=== PATIENT | male | born 1995 | race Caucasian/White ===

== ENCOUNTER 2018-09-26 22:09 | Observation (INO) | payer BC ==
[2018-09-27] MEDS ORDERED: Dextrose 50% Abboject 50 ML SYRINGE SLOW IVP PRN (01:24)
[2018-09-27] MEDS ORDERED: HYDROcodone/Acetaminophen 10/325 mg Tablet PO PRN (01:24)
[2018-09-27] MEDS ORDERED: Dextrose 5% in Water 1,000 ML IV PRN (01:24)
[2018-09-27] MEDS ORDERED: Ondansetron PF 4 MG/2 ML Vial IVP PRN (01:24)
[2018-09-27] MEDS ORDERED: traMADol HCl 50 MG TAB PO PRN (01:27)
[2018-09-27] MEDS: Acetaminophen 325 MG TAB PO SCH ×3 (03:06→15:04)
[2018-09-27] MEDS: Ibuprofen 600 MG TAB PO SCH ×2 (03:09→12:49)
[2018-09-27 03:17] VITALS: BMI 17.0
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
[2018-09-27 08:36] LABS: #Eosinphils 0.1 thou/uL (0.0-0.7); #Lymphocytes 1.6 thou/uL (1.20-3.40); #Monocytes 0.5 thou/uL (0.11-0.59); #Neutrophils 2.9 thou/uL (1.40-6.50); %Basophils 0.7 % (0.0-1.0); %Eosinophils 1.5 % (0.0-10.0); %Lymphocytes 31.6 % (28.0-48.0); %Monocytes 9.2 % (0.0-4.0); Hemoglobin 14.2 g/dL (14.0-18.0); Mean Corpuscular Hemoglobin 29.7 pg (25.0-35.0); Mean Platelet Volume 7.8 fL (7.4-10.4); Platelet Count 252 thou/uL (130-400); RBC Distribution Width 12.2 % (11.5-14.5); Red Blood Cell (RBC) Count 4.77 mill/uL (4.00-5.20); White Blood Cell (WBC) Count 5.1 thou/uL (4.8-10.8)
[2018-09-27 08:56] LABS: Anion Gap 11 mmol/L (10-20); BUN (Urea Nitrogen) 12 mg/dL (8.9-20.6); Calc. Creatinine Clearance 136 mL/min (70-130); Calcium 9.2 mg/dL (7.8-10.44); Carbon Dioxide 26 mmol/L (22-29); Chloride 107 mmol/L (98-107); Estimated GFR-MDRD Greater than 90; Glucose 97 mg/dL (70-105); Potassium 3.9 mmol/L (3.5-5.1); Sodium 140 mmol/L (136-145)
[2018-09-27] MEDS ORDERED: Famotidine 20 MG TAB PO SCH (09:00)
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
[2018-09-27 11:42] VITALS: BP 116/73; TEMP 97.9
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
== END 2018-09-27 15:30 | disposition home or self-care (01) ==
LOC: ERS 22:09 → SURG A 09-27 01:30
PROVIDERS: ADMIT Specialist; ATTEND Specialist
DX: M43.12 Spondylolisthesis, cervical region (principal); V29.40XA Motorcycle driver injured in collision with unspecified motor vehicles in traffic accident, initial encounter; Z79.899 Other long term (current) drug therapy
CPT/HCPCS: 36415; 72141; 80048; 85025; 96360; G0378; G8978-GP-CH; G8979-GP-CH; G8980-GP-CH